=== PATIENT | female | born 1955 | race Caucasian/White ===

== ENCOUNTER 2019-01-23 09:08 | Day surgery (SDC) | payer OTHER ==
[2019-01-22 15:30] VITALS: BMI 29.0
[~2019-01-23 09:08] MED LIST: EPINEPHrine 0.3 MG in Ophthalmic Irrigation Solution 500 ML IVP SCH; Fentanyl 100 MCG/2 ML VIAL ONE; Midazolam HCl 2 mg/2 ml Vial ONE
[2019-01-23] MEDS ORDERED: Phenylephrine 2.5% Ophth Soln 5 ML BOT ONE (09:26)
[2019-01-23] MEDS ORDERED: Cyclopentolate 1% Opth Drop 2 ML BOT ONE (09:27)
[2019-01-23] MEDS ORDERED: Maxitrol 0.1% Opth Oint 3.5 GM TUBE ONE (10:29)
[2019-01-23] MEDS ORDERED: Bupivacaine 10 ML VIAL ONE (10:29)
[2019-01-23] MEDS ORDERED: Lidocaine 4% PF 5 ML AMP ONE (10:29)
[2019-01-23] MEDS ORDERED: Triamcinolone 40 MG/ML VIAL ONE (10:29)
[2019-01-23] MEDS ORDERED: PROPOFOL 200 MG/20 ML VIAL ONE (10:29)
[2019-01-23] MEDS ORDERED: CEFAZOLIN 1 GM VIAL ONE (10:29)
[2019-01-23] MEDS ORDERED: Lidocaine 1% PF 5 ML VIAL ONE (10:29)
[2019-01-23] MEDS ORDERED: Midazolam HCl 2 mg/2 ml Vial ONE ×2 (10:50→12:29)
--- NOTE | 2019-01-23 19:29 | OP ---
DATE OF PROCEDURE: 01/23/2019 PREOPERATIVE DIAGNOSES: Vitreous hemorrhage, proliferative retinopathy, left eye. POSTOPERATIVE DIAGNOSES: Vitreous hemorrhage, proliferative retinopathy, left eye. PROCEDURES PERFORMED: Pars plana vitrectomy, membrane peel, panretinal photocoagulation, left eye. ANESTHESIA: Local with monitored anesthesia care. DESCRIPTION OF PROCEDURE: The patient was identified in the preoperative holding area. Appropriate informed consent for the planned surgical procedure of the left eye had been obtained. The patient was transported to the operative suite. Appropriate cardiopulmonary monitoring was established. Local anesthesia was obtained using retrobulbar modified Van Lint lid block using 50:50 mixture of 4% lidocaine and 0.75% bupivacaine. The patient was prepped and draped in usual sterile manner for ophthalmic surgery of the left eye. Lid speculum was placed in the left eye. 25-gauge trocars were placed in the conjunctiva and sclera superotemporally, inferotemporally, and supranasally. Infusion line was placed inferotemporally. Light pipe vitreous cutter was inserted into the eye. Core vitrectomy was performed. Posterior hyaloid face was elevated from proliferance and peeled out into the retinal periphery. Vitreous hemorrhage was removed with the vitreous cutter. 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 No holes, breaks, or tears were identified. Trocars were removed. The eye was noted to retain pressure well. Retrobulbar Kenalog and subconjunctival Ancef were placed. Antibiotic ointment was placed. The eye was patched and shielded. The patient was taken to the postoperative recovery unit in good condition having suffered no immediate perioperative complications. The patient was instructed to keep the patch and the shield on, avoid lifting or bending. Followup appointment with Dr. Terry. Job ID: [id number]
== END 2019-01-23 13:44 | disposition home or self-care (01) ==
LOC: SDC 09:08
PROVIDERS: ATTEND Ophthalmology Retina Specialist
PROC: 08T53ZZ Resection of Left Vitreous, Percutaneous Approach (ICD-10-PCS; principal; 2019-01-23)
PROC: 08QF3ZZ Repair Left Retina, Percutaneous Approach (ICD-10-PCS; principal; 2019-01-23)
DX: H43.12 Vitreous hemorrhage, left eye (principal); H35.22 Other non-diabetic proliferative retinopathy, left eye; H35.372 Puckering of macula, left eye; Z88.5 Allergy status to narcotic agent; Z88.8 Allergy status to other drugs, medicaments and biological substances; Z91.040 Latex allergy status
CPT/HCPCS: J0171; J0690; J2001; J2250; J2704; J3010; J3301; J3490